=== PATIENT | female | born 1970 | race Caucasian/White ===

== ENCOUNTER 2020-12-18 10:16 | Outpatient (CLI) | payer BC, SELFPAY ==
--- NOTE | 2020-12-21 13:09 | WPDPFTINT ---
PFT Procedure Performed PFT Procedure Performed Plethysmography (Lung Vol) Diffusing Cap (DLCO) Flow Vol Loop Spirometry w/o Bronchodil PFT Interpretation This PFT met all criteria for ATS standards and reproducibility FEV/FVC 77% FEV1 91% FVC 94% TLC 99% RV 78% RV/TLC 28% DLCO 110% when adjusted for alveolar volume but not adjusted for hemoglobin Flow volume loops were normal Impression: Normal PFT. Clinical correlation is advised.
== END 2020-12-18 10:17 | disposition home or self-care (01) ==
PROVIDERS: PCP Family Medicine; Visit Provider Family Medicine
DX: R06.00 Dyspnea, unspecified (principal); B94.8 Sequelae of other specified infectious and parasitic diseases
CPT/HCPCS: 94375; 94726; 94729

== ENCOUNTER 2025-02-28 00:24 | Day surgery (SDC) | payer BC, SELFPAY ==
[2025-02-13 11:51] VITALS: BMI 21.4
--- OUTSIDE RECORDS SUMMARY | 2025-02-28 00:27 | XMS_ITS | Encounter Summary ---
Author Organization [facility] Health Address [address] [place] [address] Care Team Providers Care Billet Heater Operator Name Role Phone Unavailable Primary Care Provider Unavailabl e Prior Encounters Date Type Department Care Team Description 02/15/2025 11:30 AM CDT Office Visit [facility] [address] [place], [place] [address] [phone] Brandi Chacko, [facility] 12/12/2024 1:00 PM CDT Office Visit [facility] [place] [phone] Morgan Ramirez DMD Encounter for dental examination and cleaning without abnormal findings (Primary Dx) Plan of Treatment Upcoming Encounters Date Type Department Care Team (Late st Contact Info) Description 05/28/2025 3:00 PM CDT Office Visit [facility] [address] [place], [place] [address] [phone] Justus Cantu, [facility] [address] [place] [id number] 08/21/2025 3:00 PM TRANSIT VEHICLE INSPECTOR Office Visit [facility] [place] [phone] Siva Moreno [address] [place] [id number] 08/21/2025 3:00 PM TRANSIT VEHICLE INSPECTOR Office Visit [facility] [address] [facility] [place] [phone] Brandi Chacko, [facility] [address] [place] [id number] Procedures Procedure Name Priority Date/Time Associated Diagnosis Comments ORAL HYGIENE INSTRUCTIONS Routine 02/15/2025 11:30 AM CDT LR REGINE DECON/QD Routine 02/15/2025 11:30 AM CDT LR ANTIBACT IRR/QUAD Routine 02/15/2025 11:30 AM CDT LR PERIODONTAL SCALING AND ROOT PLANING - FOUR OR MORE TEETH PER QUADRANT Routine 02/15/2025 11:30 AM CDT UR REGINE DECON/QD Routine 02/15/2025 11:30 AM CDT UR ANTIBACT IRR/QUAD Routine 02/15/2025 11:30 AM CDT UR PERIODONTAL SCALING AND ROOT PLANING - FOUR OR MORE TEETH PER QUADRANT Routine 02/15/2025 11:30 AM CDT LL REGINE DECON/QD Routine 02/15/2025 11:30 AM CDT LL ANTIBACT IRR/QUAD Routine 02/15/2025 11:30 AM CDT LL PERIODONTAL SCALING AND ROOT PLANING - FOUR OR MORE TEETH PER QUADRANT Routine 02/15/2025 11:30 AM CDT UL REGINE DECON/QD Routine 02/15/2025 11:30 AM CDT UL ANTIBACT IRR/QUAD Routine 02/15/2025 11:30 AM CDT UL PERIODONTAL SCALING AND ROOT PLANING - FOUR OR MORE TEETH PER QUADRANT Routine 02/15/2025 11:30 AM CDT ORAL FITNESS AMMP-8 MANUALLY RESULTED Routine 12/12/2024 1:28 PM CDT ORALFITNESSCHECK INITIAL SCREEN Routine 12/12/2024 1:00 PM CDT INTRAORAL PHOTO Routine 12/12/2024 1:00 PM CDT INTRAORAL PHOTO Routine 12/12/2024 1:00 PM CDT INTRAORAL PHOTO Routine 12/12/2024 1:00 PM CDT INTRAORAL PHOTO Routine 12/12/2024 1:00 PM CDT BITEWINGS - FOUR RADIOGRAPHIC IMAGES Routine 12/12/2024 1:[address] CAPTURE AND INTERPRETATION WITH FIELD OF VIEW OF BOTH JAWS; WITH OR WITHOUT CRANIUM Routine 12/12/2024 1:00 PM CDT COMPREHENSIVE ORAL EVALUATION - NEW OR ESTABLISHED PATIENT Routine 12/12/2024 1:00 PM CDT Encounter for dental examination and cleaning without abnormal findings Results * (ABNORMAL) Oral Fitness AMMP-8 manually resulted (12/12/2024 1:28 PM CDT) Active matrix metalloproteina se-8 level 71(A) 0 - 10 ng/mL Saliva Salivary gland structure / Unknown 12/12/2024 1:28 PM CDT Morgan Ramirez DMD PDS POCT [facility] F inal Result Visit Diagnoses Diagnosis Start Date Encounter for dental examination and cleaning without abnormal findings 12/12/2024 Insurance
--- OUTSIDE RECORDS SUMMARY | 2025-02-28 00:27 | XMS_ITS | Clinical Summary ---
Author Organization [facility] Health Address [address] [place] [address] Care Team Providers Care Consulting Networking Engineer Name Role Phone Unavailable Primary Care Provider Unavailabl e Medications No known medications Active Problems No known active problems Encounters Date Type Department Care Team Description 02/15/2025 11:30 AM CDT Office Visit [facility] [address] [place] [phone] Brandi Chacko, [facility] 12/12/2024 1:00 PM CDT Office Visit [facility] [address] [place] [phone] Morgan Ramirez DMD Encounter for dental examination and cleaning without abnormal findings (Primary Dx) from Last 3 Months Social History Tobacco Use Types Packs/Day Years Used Date Smoking Tobacco: Never Assessed Comments Unknown Sex and Gender Information Value Date Recorded Sex Assigned at Not on file Legal Sex Female 1:28 PM PDT Gender Identity Not on file Sexual Orientation Not on file Plan of Treatment Upcoming Encounters Date Type Department Care Team (Late st Contact Info) Description 05/28/2025 3:00 PM CDT Office Visit [facility] [address] [place] [phone] Justus Cantu, [facility] [address] [place] [address] 08/21/2025 3:00 PM ART APPRAISER Office Visit [facility] [address] [phone] Siva Moreno [address] [place] [phone] 08/21/2025 3:00 PM ART APPRAISER Office Visit [facility] [address] [phone] Brandi Chacko, [facility] [address] [facility] [place] [address] Health Maintenance Due Date Last Done Comments Dental X-Ray: Panoramic 1969 Periodontal Maintenance 1970 OralFitnessCheck Screening 06/14/2025 12/12/2024 Dental Oral Exam 06/15/2025 12/12/2024 Dental X-Ray: Bitewings 06/15/2025 12/12/2024 Scaling and Root Planing 03/01/2027 025, 02/15/2025, 02/15/2025, Additional history exists Dental CBCT 12/13/2027 12/12/2024 Dental X-Ray: Full Mouth 12/14/2027 12/12/2024 Procedures Procedure Name Priority Date/Time Associated Diagnosis [...] dental examination and cleaning without abnormal findings from Last 3 Months Results * (ABNORMAL) Oral Fitness AMMP-8 manually resulted (12/12/2024 1:28 PM CDT) Active matrix metalloproteina se-8 level 71(A) 0 - 10 ng/mL Saliva Salivary gland structure / Unknown 12/12/2024 1:28 PM CDT us Morgan Ramriez DMD PDS POCT [facility] F inal Result from Last 3 Months Insurance [facility] PPO
[2025-02-28 09:01] VITALS: BP 110/65; PULSE 46; RESP 16; TEMP 36.3; O2SAT 100; BMI 21.1
[2025-02-28] MEDS: LACTATED RINGERS 1,000 ML 150 ML IV CONT (09:12)
--- NOTE | 2025-02-28 09:47 | WPDANESEPPF ---
Anes - Initial Pre Proc Eval Procedure: Operation Date: 02/28/25 09:30 Proposed Procedures p Screening Colonoscopy - Stewart John MD Date/Time: 02/28/25 09:47 Surgeon: Stewart John MD Pre Op Diagnosis: Screening Patient Data Age: 54 Gender: F Height: 1.75 m Weight: 64.9 kg Last Vital Signs Temp 97.4 F L 02/28/25 09:01 Pulse 46 L 02/28/25 09:01 Resp 16 02/28/25 09:01 BP 110/65 02/28/25 09:01 Pulse Ox 100 02/28/25 09:01 O2 Del Method Room Air 02/28/25 09:01 Allergies Allergy/AdvReac Type Severity Reaction Status Date / Time Penicillins Allergy Unknown Skin Verified 02/28/25 08:59 Reaction thimerosal Allergy Unknown Rash Verified 02/28/25 08:59 Home Medications ?Medication ?Instructions ?Recorded ?Confirmed ?Type multivitamin 1 tablet PO DAILY 07/03/19 02/28/25 History melatonin 10 mg tablet 130 mg PO QHS 10/09/22 02/28/25 History cholecalciferol (vitamin D3) 125 125 mcg PO DAILY #90 caps 11/09/22 02/28/25 Rx mcg (5,000 unit) capsule progesterone micronized 200 mg 200 mg PO DAILY 11/09/22 02/28/25 History capsule hydrocortisone 2.5 % topical cream 1 applic RECTAL QHS PRN 11/16/24 02/13/25 Rx with perineal applicator hemorrhoids #30 grams (Anusol-HC) levothyroxine 150 mcg tablet 150 mcg PO DAILY 11/16/24 02/28/25 History liothyronine 5 mcg tablet 5 mcg PO BID 11/16/24 02/28/25 History minoxidil 2.5 mg tablet 2.5 mg PO DAILY 11/16/24 02/28/25 History progesterone micronized 100 mg 100 mg PO DAILY 11/16/24 02/28/25 History capsule Patient hx anesthesia problems: none Family hx anesthesia problems: none Results Review: All pre-operative results and documents have been reviewed as part of the pre-operative evaluation. [facility] Past Medical History Medical History Persistent dyspnea after COVID-19 Allergic rhinitis, cause unspecified Bronchospasm with bronchitis, acute Congenital deformity of spine Hypothyroidism (acquired) Overactive bladder Psoriasis, unspecified Radiculopathy, lumbar region Raynauds syndrome Vitamin deficiency, unspecified Surgical History Surgical History History of breast biopsy benign 2012 and 2011 Family History Family History Grandparent Diabetes mellitus Other Family history of allergic disorder Family history of malignant neoplasm Social History Social History Social History: Caffeine- daily Smoking status: Never smoker Alcohol intake: never Substance use: never Substance use type: does not use Lack of Transportation: No Lack of Food: Never True Current Housing: I Have Housing Concerned About Future Housing: No Difficulty Paying Gas/Electric Bills: No Difficulty Paying for Meds: No Currently Unemployed: No Education: Master's Degree or Higher Difficulty w/ Childcare or Family Care: No Living arrangements: alone Spiritual care concerns: No Anes - Eval Final PreProcedure Day of Procedure 02/28/25 09:47 Patient weight: normal Heart: regular rate and rhythm Lungs: clear to auscultation Airway: Mallampati scale class II Neurological: alert and oriented Last oral intake: >/= 8 hours ASA classification: II Emergent: no Anesthetic plan: proceed Anesthesia type and monitoring: general GIVS and standard monitoring Results Review: All pre-operative results and documents have been reviewed as part of the pre-operative evaluation. Informed Consent: The patient's anesthetic plan and its attendant risks and benefits were discussed with the patient/family/POA. Questions were solicited and answers provided to the satisfaction of the patient/family/POA.
--- NOTE | 2025-02-28 10:00 | PM.HPGS ---
History of Present Illness History of Present Illness Consent: Risks, benefits, and alternatives have been discussed and questions answered. Patient agrees to proceed with procedure. Chief complaint: Screening Narrative: Lisa Barahona is a 54 year old female here for first screening colonoscopy Review of Systems Review of Systems: All systems reviewed & are unremarkable except as noted in HPI and below PMFSH Past Medical History Medical History (Updated 02/28/25 @ 10:01 by Stewart John MD) Colon cancer screening Persistent dyspnea after COVID-19 Allergic rhinitis, cause unspecified Bronchospasm with bronchitis, acute Congenital deformity of spine Hypothyroidism (acquired) Overactive bladder Psoriasis, unspecified Radiculopathy, lumbar region Raynauds syndrome Vitamin deficiency, unspecified Surgical History Surgical History History of breast biopsy benign 2012 and 2011 Family History Family History Grandparent Diabetes mellitus Other Family history of allergic disorder Family history of malignant neoplasm Social History Social History Social History: Caffeine- daily Smoking status: Never smoker Alcohol intake: never Substance use: never Substance use type: does not use Lack of Transportation: No Lack of Food: Never True Current Housing: I Have Housing Concerned About Future Housing: No Difficulty Paying Gas/Electric Bills: No Difficulty Paying for Meds: No Currently Unemployed: No Education: Master's Degree or Higher Difficulty w/ Childcare or Family Care: No Living arrangements: alone Spiritual care concerns: No Meds Home Medications and Allergies Home Medications ?Medication ?Instructions ?Recorded ?Confirmed ?Type multivitamin 1 tablet PO DAILY 07/03/19 02/28/25 History melatonin 10 mg tablet 130 mg PO QHS 10/09/22 02/28/25 History cholecalciferol (vitamin D3) 125 125 mcg PO DAILY #90 caps 11/09/22 02/28/25 Rx mcg (5,000 unit) capsule progesterone micronized 200 mg 200 mg PO DAILY 11/09/22 02/28/25 History capsule hydrocortisone 2.5 % topical cream 1 applic RECTAL QHS PRN 11/16/24 02/13/25 Rx with perineal applicator hemorrhoids #30 grams (Anusol-HC) levothyroxine 150 mcg tablet 150 mcg PO DAILY 11/16/24 02/28/25 History liothyronine 5 mcg tablet 5 mcg PO BID 11/16/24 02/28/25 History minoxidil 2.5 mg tablet 2.5 mg PO DAILY 11/16/24 02/28/25 History progesterone micronized 100 mg 100 mg PO DAILY 11/16/24 02/28/25 History capsule Allergies Allergy/AdvReac Type Severity Reaction Status Date / Time Penicillins Allergy Unknown Skin Verified 02/28/25 08:59 Reaction thimerosal Allergy Unknown Rash Verified 02/28/25 08:59 Vital Signs Vital Signs - 24 hr 02/28/25 09:01 Temperature 97.4 F L Pulse Rate 46 L Respiratory Rate 16 Blood Pressure 110/65 Pulse Oximetry 100 Oxygen Delivery Room Air Exam Const: General: comfortable and no acute distress HENMT: Face/Nose/Sinus: Normal nares present Eyes: General: appearance normal, both eyes and all related structures Neck: Neck: no JVD Resp: Auscultation: clear to auscultation bilaterally Cardio: Rate: regular rate Rhythm: regular rhythm GI: Inspection: non-distended GI Palp: Yes Soft to palpation Skin: General skin exam: normal color Neuro: General: gait normal Speech: normal speech Extrem: General: normal to inspection Psych: Mental Status: mental status grossly normal Assessment and Plan Assessment and plan (1) Colon cancer screening: Code(s): Z12.11 - Encounter for screening for malignant neoplasm of colon Status: Acute Assessment and Plan: colonoscopy
[2025-02-28 10:28] VITALS: BP 81/54; PULSE 49; RESP 14; O2SAT 100
--- NOTE | 2025-02-28 10:32 | SUR.OPER ---
no specimen retrieved DR Peter aware
[2025-02-28 10:38] VITALS: BP 88/52; PULSE 55; RESP 20; O2SAT 100
[2025-02-28 10:48] VITALS: BP 96/54; PULSE 52; RESP 20; O2SAT 100
== END 2025-02-28 11:02 | disposition home or self-care (01) ==
PROVIDERS: PCP Family Medicine; Referring Provider Family Medicine; Visit Provider Internal Medicine Gastroenterology
PROC: 0DJD8ZZ Inspection of Lower Intestinal Tract, Via Natural or Artificial Opening Endoscopic (ICD-10-PCS; CPT 45378; principal; 2025-02-28 09:30)
DX: Z12.11 Encounter for screening for malignant neoplasm of colon (principal); K62.1 Rectal polyp; K62.89 Other specified diseases of anus and rectum; E03.9 Hypothyroidism, unspecified; I73.00 Raynaud's syndrome without gangrene; E55.9 Vitamin D deficiency, unspecified; N32.81 Overactive bladder; L40.9 Psoriasis, unspecified; Q67.5 Congenital deformity of spine; Z98.890 Other specified postprocedural states; Z80.9 Family history of malignant neoplasm, unspecified
CPT/HCPCS: 45385; J2003; J2704; J7120